=== PATIENT | male | born 2000 | race Caucasian/White ===

== ENCOUNTER 2020-11-06 15:22 | Emergency (ER) | payer OTHER, SELFPAY ==
--- NOTE | 2020-11-06 15:39 | ED.GENADULT ---
HPI - General Adult General Chief complaint: Skin/Abscess/Foreign Body Stated complaint: Rash Time Seen by Provider: 11/06/20 15:39 Source: patient Mode of arrival: ambulatory Limitations: no limitations History of Present Illness HPI narrative: 20-year-old male patient presents to the [facility] with complaints of a rash for the past 4 weeks. Patient states he saw his primary doctor about this rash about 2 weeks ago and was prescribed some try Symlin cream. Patient states when you put it on the rash areas it does help but states that he has continued to have new areas pop up. Patient states that the itching is worse with sleeping at night. Patient states he recently came home from school and started sleeping in his brothers bed. Patient states he has only 1 in the household with the rash and states that they do have a dog in the house. Patient states that the rash does not go below his waist. Denies any chest pain, shortness of breath. Related Data Home Medications Medication Instructions Recorded Confirmed triamcinolone acetonide 1 applic TOPICAL BID 11/06/20 11/06/20 Allergies Allergy/AdvReac Type Severity Reaction Status Date / Time No Known Allergies Allergy Verified 11/06/20 15:55 Review of Systems Review of Systems: Narrative: CONSTITUTIONAL: Denies fever, chills, or sweats. EYES: Denies visual changes, redness, or discharge. ENT: Denies rhinorrhea, congestion, sore throat, or otalgia. CARDIOVASCULAR: Denies chest pain, palpitations, or edema. RESPIRATORY: Denies cough or dyspnea. GASTROINTESTINAL: Denies abdominal pain, nausea, vomiting, or diarrhea. GENITOURINARY: Denies dysuria or hematuria. SKIN: Positive rash with itching. MUSCULOSKELETAL: Denies back pain, joint pain, or myalgia. NEUROLOGIC: Denies headache, numbness, or weakness. PSYCHIATRIC: Denies anxiety or depression. [facility] Past Medical History Medical History (Updated 11/06/20 @ 16:14 by DEMIAN Claire) Seasonal allergies Comments At the time of my signature I agree with nursing past medical history, surgical, social, and family history. There is no relevant family history pertinent to the presenting complaint. Exam Narrative: Exam Narrative: GENERAL: Well-appearing, well-nourished, and in no acute distress. HEAD: Normocephalic, atraumatic. EYES: PERRLA and EOMI. ENT: Nares clear, no rhinorrhea or epistaxis. Mucous membranes moist. NECK: Supple. No lymphadenopathy CHEST: Clear to auscultation. No respiratory distress. HEART: Regular rate and rhythm. No murmur heard. Normal peripheral pulses. ABDOMEN: Soft, nontender, nondistended, normal active bowel sounds. EXTREMITIES: Normal range of motion. No edema. SKIN: Warm, dry, patient has erythemic flat areas to bilateral arms in various spots. There is no clustering of the rash together one area. There are several small little pinpoint reddened areas to the wrist and in between the webs of the fingers. There is one area similar to this along the waistline. NEURO: No focal deficits. Alert and oriented x3. Course Vital Signs Vital signs: Vital Signs Temperature 34.7 C L 11/06/20 15:46 Pulse Rate 62 11/06/20 15:46 Respiratory Rate 18 11/06/20 15:46 Blood Pressure 131/71 11/06/20 15:46 Pulse Oximetry 100 11/06/20 15:46 Temperature 34.7 C L 11/06/20 15:46 Pulse Rate 62 11/06/20 15:46 Respiratory Rate 18 11/06/20 15:46 Blood Pressure 131/71 11/06/20 15:46 Pulse Oximetry 100 11/06/20 15:46 Vital signs reviewed Medical Decision Making Differential Diagnosis Differential Diagnosis: Differential diagnosis: Contact dermatitis, poison gutierrez, poison sumac, psoriasis, eczema, allergic reaction, drug reaction, scabies, tinea syphilis, lung disease, viral exanthema, pityriasis, erythema multiforme. This with patient that is hard to tell exactly what is causing the rash. Discussed with him however that since he has been on the try Symlin cream now for 2 weeks
[2020-11-06 15:46] VITALS: BP 131/71; PULSE 62; RESP 18; TEMP 34.7; O2SAT 100
[2020-11-06 16:13] VITALS: TEMP 36.9
== END 2020-11-06 16:24 | disposition home or self-care (01) ==
PROVIDERS: Emergency Provider Nurse Practitioner Family
DX: R21 Rash and other nonspecific skin eruption (principal); S60.869A Insect bite (nonvenomous) of unspecified wrist, initial encounter; S60.569A Insect bite (nonvenomous) of unspecified hand, initial encounter; W57.XXXA Bitten or stung by nonvenomous insect and other nonvenomous arthropods, initial encounter
CPT/HCPCS: 99203; G0463